=== PATIENT | female | born 1935 | race Caucasian/White ===

== ENCOUNTER 2022-04-24 17:13 | Inpatient (IN) ==
[2022-04-24] MEDS ORDERED: ACETAMINOPHEN 500 MG TABLET PO STA (18:37)
[2022-04-24] MEDS ORDERED: SODIUM CHLORIDE 0.9% 500 ML IV STA (18:37)
[2022-04-24 18:55] LABS: Basophils % 0.2 % (0.0-0.8); Eosinophils % 0.1 % (0.00-10.9); Hematocrit 34.7 VOL% (35.7-47.0); Hemoglobin 11.3 GM/DL (12.0-16.0); Immature Granulocytes % 0.5 %; Immature Granulocytes Absolute 0.04 #; Lymphocytes # 0.5 10*3/uL (1.4-4.0); Lymphocytes % 5.8 % (21.3-54.2); Mean Corpuscular HGB Conc 32.6 GM/DL (32-36); Mean Platelet Volume 9.9 FL (9.6-12.0); Monocytes # 0.8 10*3/uL (0.11-0.8); Monocytes % 8.7 % (1.7-12.7); Neutrophils % 84.7 % (38.7-73.9); Platelet Count 286 T/CUMM (130-400); Red Blood Count 3.73 MC/CUMM (3.8-5.5); Red Cell Distribution Width 14.4 % (9.3-17.3); White Blood Count 8.8 T/CUMM (4-12)
[2022-04-24 19:03] LABS: Albumin 3.1 G/DL (3.4-5.0); Bilirubin,Total 0.6 MG/DL (0.20-1.00); Calcium 9.3 MG/DL (8.5-10.1); Osmolality,Calculated 249.5 MOS/KG (273-304); Potassium 4.2 MMOL/L (3.5-5.1); Total Protein 6.6 G/DL (6.4-8.2)
[2022-04-24] MEDS ORDERED: hydrALAZINE 20 MG/1 ML VIAL IV STA (19:55)
[2022-04-24] MEDS ORDERED: hydrALAZINE 20 MG/1 ML VIAL ONE (19:55)
[2022-04-24 20:22] LABS: Bilirubin,Urine Negative (Negative); Blood, Urine Negative (Negative); Glucose,Urine (UA) Negative (Negative); Ketones,Urine Negative (Negative); Nitrite,Urine Negative (Negative); Protein,Urine Negative (Negative); Urine Appearance Clear (Clear); Urine Color Yellow (Yellow); Urine Specific Gravity 1.015 (1.001-1.035)
[2022-04-24 20:27] LABS: Hyaline Casts,Urine 5 /LPF (0-3); Mucus,Urine Occasional /LPF (Occasional); RBC,Urine 1 /HPF (0-4); Squamous Epithelial Cell,Urine Occasional /HPF (0-10)
[2022-04-24] MEDS ORDERED: LEVOFLOXACIN INJ 750 MG/150 ML PREMIX IV STA (21:00)
[2022-04-24] MEDS ORDERED: GLUCAGON 1 MG VIAL IM PRN (22:09)
[2022-04-24] MEDS ORDERED: DEXTROSE 10% 250 ML BAG IV PRN (22:19)
[2022-04-24] MEDS ORDERED: SODIUM CHLORIDE 0.9% 1,000 ML IV SCH (22:30)
[2022-04-25] MEDS: ALBUTEROL/IPRATROPIUM 3 ML NEB RESP TX SCH ×4 (00:04→19:43)
[2022-04-25] MEDS: ONDANSETRON 4 MG/2 ML VIAL IV PRN (04:17)
[2022-04-25] MEDS: ACETAMINOPHEN 325 MG TABLET PO PRN ×2 (05:51→17:09)
[2022-04-25 06:18] LABS: Basophils % 0.2 % (0.0-0.8); Eosinophils % 0.1 % (0.00-10.9); Hematocrit 31.9 VOL% (35.7-47.0); Hemoglobin 10.3 GM/DL (12.0-16.0); Immature Granulocytes % 0.7 %; Immature Granulocytes Absolute 0.06 #; Lymphocytes # 0.3 10*3/uL (1.4-4.0); Lymphocytes % 3.8 % (21.3-54.2); Mean Corpuscular HGB Conc 32.3 GM/DL (32-36); Mean Corpuscular Volume 93.5 FL (87-102); Mean Platelet Volume 9.4 FL (9.6-12.0); Monocytes # 0.9 10*3/uL (0.11-0.8); Monocytes % 9.7 % (1.7-12.7); Neutrophils % 85.5 % (38.7-73.9); Platelet Count 249 T/CUMM (130-400); Red Blood Count 3.41 MC/CUMM (3.8-5.5); Red Cell Distribution Width 14.5 % (9.3-17.3); White Blood Count 8.8 T/CUMM (4-12)
[2022-04-25 06:36] LABS: Calcium 8.8 MG/DL (8.5-10.1); Osmolality,Calculated 256.1 MOS/KG (273-304); Potassium 3.8 MMOL/L (3.5-5.1)
[2022-04-25 06:41] LABS: Lymphocytes 4 % (20-55); Platelet Estimate Adequate; Total Cells Counted 100
[2022-04-25] MEDS: ENOXAPARIN 40 MG/0.4 ML SYRINGE SUBCUT SCH (09:12)
[2022-04-25] MEDS: PANTOPRAZOLE 40 MG TABLET PO SCH (09:12)
[2022-04-25] MEDS: DOCUSATE SODIUM 100 MG CAPSULE PO SCH ×2 (09:12→21:14)
[2022-04-25] MEDS: guaiFENesin/DM ER 600-30 MG TABLET PO SCH ×2 (09:12→21:14)
[2022-04-25] MEDS ORDERED: cloNIDine 0.1 MG TABLET PO PRN (11:25)
[2022-04-25 13:03] LABS: INR 1.1; PT Patient Result 12.3 SECS (10.1-12.1)
[2022-04-25] MEDS: FUROSEMIDE 40 MG/4 ML VIAL IV SCH (16:28)
[2022-04-25] MEDS: LEVOFLOXACIN INJ 750 MG/150 ML PREMIX IV SCH (21:13)
[2022-04-25] MEDS: METOPROLOL TARTRATE 50 MG TABLET PO SCH (21:13)
[2022-04-25] MEDS: traZODone 50 MG TABLET PO SCH (21:14)
[2022-04-26] MEDS: ALBUTEROL/IPRATROPIUM 3 ML NEB RESP TX SCH ×4 (00:14→19:55)
[2022-04-26] MEDS: ACETAMINOPHEN 325 MG TABLET PO PRN ×3 (02:58→23:59)
[2022-04-26 04:47] LABS: Basophils % 0.1 % (0.0-0.8); Eosinophils % 0.1 % (0.00-10.9); Hematocrit 28.5 VOL% (35.7-47.0); Hemoglobin 9.3 GM/DL (12.0-16.0); Immature Granulocytes % 0.6 %; Immature Granulocytes Absolute 0.05 #; Lymphocytes # 0.3 10*3/uL (1.4-4.0); Lymphocytes % 3.8 % (21.3-54.2); Mean Corpuscular HGB Conc 32.6 GM/DL (32-36); Mean Corpuscular Volume 93.4 FL (87-102); Monocytes # 0.8 10*3/uL (0.11-0.8); Neutrophils % 86.4 % (38.7-73.9); Platelet Count 233 T/CUMM (130-400); Red Blood Count 3.05 MC/CUMM (3.8-5.5); Red Cell Distribution Width 14.4 % (9.3-17.3); White Blood Count 8.9 T/CUMM (4-12)
[2022-04-26 05:08] LABS: Calcium 8.4 MG/DL (8.5-10.1); Osmolality,Calculated 258.1 MOS/KG (273-304); Potassium 3.8 MMOL/L (3.5-5.1)
[2022-04-26 05:14] LABS: Eosinophils 1 % (0-10); Lymphocytes 2 % (20-55); Platelet Estimate Adequate; Total Cells Counted 100
[2022-04-26] MEDS: LEVOTHYROXINE 25 MCG TABLET PO SCH (05:34)
[2022-04-26] MEDS: ENOXAPARIN 40 MG/0.4 ML SYRINGE SUBCUT SCH (08:41)
[2022-04-26] MEDS: guaiFENesin/DM ER 600-30 MG TABLET PO SCH ×2 (08:47→21:47)
[2022-04-26] MEDS: DOCUSATE SODIUM 100 MG CAPSULE PO SCH ×2 (08:47→21:48)
[2022-04-26] MEDS: LOSARTAN 50 MG TABLET PO SCH (08:47)
[2022-04-26] MEDS: FERROUS SULFATE 325 MG TABLET PO SCH (08:48)
[2022-04-26] MEDS: METOPROLOL TARTRATE 50 MG TABLET PO SCH ×2 (08:48→21:48)
[2022-04-26] MEDS: PANTOPRAZOLE 40 MG TABLET PO SCH (08:48)
[2022-04-26] MEDS: FUROSEMIDE 40 MG/4 ML VIAL IV SCH ×2 (08:50→16:25)
[2022-04-26] MEDS: BISACODYL 5 MG TABLET PO SCH (13:24)
[2022-04-26] MEDS: POLYETHYLENE GLYCOL POWDER 17 GM PACK PO SCH ×2 (13:24→21:48)
[2022-04-26] MEDS: ONDANSETRON 4 MG/2 ML VIAL IV PRN ×2 (18:15→23:53)
[2022-04-26] MEDS: traZODone 50 MG TABLET PO SCH (21:47)
[2022-04-26] MEDS: LEVOFLOXACIN INJ 750 MG/150 ML PREMIX IV SCH (21:53)
[2022-04-27] MEDS: ALBUTEROL/IPRATROPIUM 3 ML NEB RESP TX SCH ×4 (00:21→19:41)
[2022-04-27] MEDS: LEVOTHYROXINE 25 MCG TABLET PO SCH (06:25)
[2022-04-27 07:49] LABS: Basophils % 0.1 % (0.0-0.8); Eosinophils # 0.1 10*3/uL (0.0-0.87); Eosinophils % 0.6 % (0.00-10.9); Hematocrit 31.9 VOL% (35.7-47.0); Hemoglobin 10.5 GM/DL (12.0-16.0); Immature Granulocytes % 0.4 %; Immature Granulocytes Absolute 0.03 #; Lymphocytes # 0.7 10*3/uL (1.4-4.0); Lymphocytes % 8.3 % (21.3-54.2); Mean Corpuscular HGB Conc 32.9 GM/DL (32-36); Mean Corpuscular Volume 91.4 FL (87-102); Mean Platelet Volume 8.8 FL (9.6-12.0); Monocytes # 0.9 10*3/uL (0.11-0.8); Monocytes % 10.7 % (1.7-12.7); Neutrophils % 79.9 % (38.7-73.9); Platelet Count 299 T/CUMM (130-400); Red Blood Count 3.49 MC/CUMM (3.8-5.5); Red Cell Distribution Width 14.5 % (9.3-17.3); White Blood Count 8.1 T/CUMM (4-12)
[2022-04-27 08:11] LABS: Calcium 8.8 MG/DL (8.5-10.1); Osmolality,Calculated 256.1 MOS/KG (273-304)
[2022-04-27] MEDS: FUROSEMIDE 40 MG/4 ML VIAL IV SCH ×2 (09:20→16:39)
[2022-04-27] MEDS: ENOXAPARIN 40 MG/0.4 ML SYRINGE SUBCUT SCH (12:58)
[2022-04-27] MEDS: METOPROLOL TARTRATE 50 MG TABLET PO SCH ×2 (12:59→21:03)
[2022-04-27] MEDS: DOCUSATE SODIUM 100 MG CAPSULE PO SCH ×2 (12:59→21:03)
[2022-04-27] MEDS: guaiFENesin/DM ER 600-30 MG TABLET PO SCH ×2 (13:00→21:03)
[2022-04-27] MEDS ORDERED: POTASSIUM CHLORIDE 20 MEQ TABLET PO ONE (13:30)
[2022-04-27] MEDS: PANTOPRAZOLE 40 MG TABLET PO SCH (14:10)
[2022-04-27] MEDS: LOSARTAN 50 MG TABLET PO SCH (14:10)
[2022-04-27] MEDS: BISACODYL 5 MG TABLET PO SCH (14:10)
[2022-04-27] MEDS: FERROUS SULFATE 325 MG TABLET PO SCH (14:11)
[2022-04-27] MEDS: POLYETHYLENE GLYCOL POWDER 17 GM PACK PO SCH ×2 (14:11→21:03)
[2022-04-27 14:21] LABS: Total Protein,Pleural Fluid 2.7 G/DL
[2022-04-27 14:41] LABS: Lymphocytes,Pleural Fluid 78 %; Monocytes,Pleural Fluid 3 %; Neutrophils,Pleural Fluid 19 %
[2022-04-27 14:43] LABS: RBC,Pleural Fluid 2578 T/CUMM
[2022-04-27 15:11] LABS: Calcium 8.9 MG/DL (8.5-10.1); Osmolality,Calculated 260.8 MOS/KG (273-304); Potassium 3.1 MMOL/L (3.5-5.1)
[2022-04-27] MEDS: ONDANSETRON 4 MG/2 ML VIAL IV PRN (16:39)
[2022-04-27] MEDS: POTASSIUM CHLORIDE 20 MEQ TABLET PO SCH (21:03)
[2022-04-27] MEDS: traZODone 50 MG TABLET PO SCH (21:03)
[2022-04-27] MEDS: LEVOFLOXACIN INJ 750 MG/150 ML PREMIX IV SCH (21:05)
[2022-04-28] MEDS: ALBUTEROL/IPRATROPIUM 3 ML NEB RESP TX SCH ×2 (00:17→06:59)
[2022-04-28] MEDS: ACETAMINOPHEN 325 MG TABLET PO PRN (00:59)
[2022-04-28] MEDS: LEVOTHYROXINE 25 MCG TABLET PO SCH (05:33)
[2022-04-28 05:45] LABS: Basophils % 0.2 % (0.0-0.8); Eosinophils % 0.4 % (0.00-10.9); Hematocrit 34.9 VOL% (35.7-47.0); Hemoglobin 11.4 GM/DL (12.0-16.0); Immature Granulocytes % 0.4 %; Immature Granulocytes Absolute 0.03 #; Lymphocytes # 1.1 10*3/uL (1.4-4.0); Lymphocytes % 12.7 % (21.3-54.2); Mean Corpuscular HGB Conc 32.7 GM/DL (32-36); Mean Corpuscular Volume 92.1 FL (87-102); Mean Platelet Volume 8.7 FL (9.6-12.0); Monocytes # 0.7 10*3/uL (0.11-0.8); Monocytes % 8.3 % (1.7-12.7); Platelet Count 337 T/CUMM (130-400); Red Blood Count 3.79 MC/CUMM (3.8-5.5); Red Cell Distribution Width 14.3 % (9.3-17.3); White Blood Count 8.4 T/CUMM (4-12)
[2022-04-28 05:56] LABS: Calcium 8.8 MG/DL (8.5-10.1); Osmolality,Calculated 256.2 MOS/KG (273-304); Potassium 3.6 MMOL/L (3.5-5.1)
[2022-04-28] MEDS ORDERED: FUROSEMIDE 40 MG TABLET PO SCH (09:00)
[2022-04-28] MEDS: POLYETHYLENE GLYCOL POWDER 17 GM PACK PO SCH (09:16)
[2022-04-28] MEDS: FERROUS SULFATE 325 MG TABLET PO SCH (09:17)
[2022-04-28] MEDS: PANTOPRAZOLE 40 MG TABLET PO SCH (09:17)
[2022-04-28] MEDS: METOPROLOL TARTRATE 50 MG TABLET PO SCH (09:17)
[2022-04-28] MEDS: POTASSIUM CHLORIDE 20 MEQ TABLET PO SCH (09:17)
[2022-04-28] MEDS: guaiFENesin/DM ER 600-30 MG TABLET PO SCH (09:17)
[2022-04-28] MEDS: LOSARTAN 50 MG TABLET PO SCH (09:17)
[2022-04-28] MEDS: BISACODYL 5 MG TABLET PO SCH (09:17)
[2022-04-28] MEDS: DOCUSATE SODIUM 100 MG CAPSULE PO SCH (09:17)
[2022-04-28] MEDS: ENOXAPARIN 40 MG/0.4 ML SYRINGE SUBCUT SCH (09:21)
[2022-04-28] MEDS ORDERED: MAGNESIUM HYDROXIDE SUSP 30 ML UDCUP PO ONE (10:30)
[2022-04-28] MEDS: FUROSEMIDE 40 MG/4 ML VIAL IV SCH (10:51)
[2022-04-28 11:46] VITALS: BP 106/60
== END 2022-04-28 12:42 | disposition swing bed (61) | DRG 291 ==
LOC: N.ED 17:13 → N.EDINP 22:09 → SUATTDRO 22:09 → N.3E 04-25 03:03
PROVIDERS: ADMIT Internal Medicine; ATTEND Internal Medicine

== ENCOUNTER 2022-06-01 17:41 | Observation (INO) ==
[2022-06-01] MEDS ORDERED: FUROSEMIDE 40 MG/4 ML VIAL IV STA (20:07)
[2022-06-01] MEDS ORDERED: hydrALAZINE 20 MG/1 ML VIAL IV STA (20:44)
[2022-06-01 20:47] LABS: Basophils % 0.5 % (0.0-0.8); Eosinophils # 0.1 10*3/uL (0.0-0.87); Eosinophils % 1.1 % (0.00-10.9); Hemoglobin 11.8 GM/DL (12.0-16.0); Immature Granulocytes % 0.3 %; Immature Granulocytes Absolute 0.02 #; Lymphocytes # 1.3 10*3/uL (1.4-4.0); Mean Corpuscular HGB Conc 32.8 GM/DL (32-36); Mean Corpuscular Volume 90.5 FL (87-102); Mean Platelet Volume 8.8 FL (9.6-12.0); Monocytes # 0.6 10*3/uL (0.11-0.8); Monocytes % 9.5 % (1.7-12.7); Neutrophils % 67.6 % (38.7-73.9); Platelet Count 302 T/CUMM (130-400); Red Blood Count 3.98 MC/CUMM (3.8-5.5); Red Cell Distribution Width 15.2 % (9.3-17.3); White Blood Count 6.3 T/CUMM (4-12)
[2022-06-01 21:08] LABS: PT Patient Result 11.4 SECS (10.1-12.1)
[2022-06-01 21:11] LABS: Alanine Aminotransferase 30 U/L (13-56); Albumin 2.7 G/DL (3.4-5.0); Alkaline Phosphatase 92 U/L (45-117); Aspartate Amino Transferase 20 U/L (0-37); Bilirubin,Total < 0.39 MG/DL (0.20-1.00); Blood Urea Nitrogen 20 MG/DL (7-18); Calcium 8.8 MG/DL (8.5-10.1); Carbon Dioxide 32 MMOL/L (21-32); Chloride 90 MMOL/L (98-107); Glucose 88 MG/DL (74-106); Osmolality,Calculated 261.8 MOS/KG (273-304); Potassium 3.6 MMOL/L (3.5-5.1); Sodium 130 MMOL/L (136-145); Total Protein 6.6 G/DL (6.4-8.2)
[2022-06-01] MEDS ORDERED: hydrALAZINE 20 MG/1 ML VIAL IV PRN (22:38)
[2022-06-01] MEDS ORDERED: GLUCAGON 1 MG VIAL IM PRN (22:38)
[2022-06-01] MEDS ORDERED: ACETAMINOPHEN 325 MG TABLET PO PRN (22:38)
[2022-06-01] MEDS ORDERED: DEXTROSE 10% 250 ML BAG IV PRN (22:38)
[2022-06-01] MEDS ORDERED: NICOTINE 21 MG/24 HR PATCH TRANSDERM PRN (22:38)
[2022-06-01] MEDS ORDERED: guaiFENesin/DM ER 600-30 MG TABLET PO PRN (22:38)
[2022-06-01] MEDS ORDERED: diphenhydrAMINE CAP 25 MG CAPSULE PO PRN (22:38)
[2022-06-01] MEDS ORDERED: ONDANSETRON 4 MG/2 ML VIAL IV PRN (22:38)
[2022-06-01] MEDS ORDERED: ZALEPLON 5 MG CAPSULE PO PRN (22:38)
[2022-06-02] MEDS: ALBUTEROL/IPRATROPIUM 3 ML NEB RESP TX SCH ×2 (01:11→07:21)
[2022-06-02 04:50] LABS: Basophils % 0.4 % (0.0-0.8); Eosinophils # 0.1 10*3/uL (0.0-0.87); Eosinophils % 0.7 % (0.00-10.9); Hematocrit 33.7 VOL% (35.7-47.0); Hemoglobin 10.7 GM/DL (12.0-16.0); Immature Granulocytes % 0.3 %; Immature Granulocytes Absolute 0.02 #; Lymphocytes % 13.3 % (21.3-54.2); Mean Corpuscular HGB Conc 31.8 GM/DL (32-36); Mean Corpuscular Volume 90.8 FL (87-102); Mean Platelet Volume 8.9 FL (9.6-12.0); Monocytes # 0.6 10*3/uL (0.11-0.8); Monocytes % 8.5 % (1.7-12.7); Neutrophils % 76.8 % (38.7-73.9); Platelet Count 296 T/CUMM (130-400); Red Blood Count 3.71 MC/CUMM (3.8-5.5); Red Cell Distribution Width 15.1 % (9.3-17.3); White Blood Count 7.4 T/CUMM (4-12)
[2022-06-02 05:14] LABS: Calcium 8.5 MG/DL (8.5-10.1); Osmolality,Calculated 268.4 MOS/KG (273-304); Potassium 3.3 MMOL/L (3.5-5.1)
[2022-06-02] MEDS ORDERED: PANTOPRAZOLE 40 MG TABLET PO SCH (09:00)
[2022-06-02 11:33] VITALS: BP 113/67
== END 2022-06-02 12:05 | disposition home or self-care (01) ==
LOC: N.ED 17:41 → N.EDINP 17:41 → MERGE 22:38 → N.EDINP 23:48 → N.3E 06-02 00:18
PROVIDERS: ADMIT Emergency Medicine; ATTEND Emergency Medicine